=== PATIENT | female | born 2000 ===

== ENCOUNTER 2021-01-24 11:11 | Emergency (ER) | payer MEDICAID ==
[2021-01-24] MEDS ORDERED: ONDANSETRON 4 MG/2 ML INJ IV ONE (12:35)
[2021-01-24] MEDS ORDERED: SODIUM CHLORIDE 0.9% 1000 ML 1,000 ML IV ONE (12:35)
--- NOTE | 2021-01-24 12:36 | Event Note ---
ED Screening Note Date of service: 01/24/21 Time: 12:33 ED Screening Note: The patient was evaluated in the emergency department for symptoms described in the history of present illness. He/she was evaluated in the context of the global COVID-19 pandemic, which necessitated consideration that the patient might be at risk for infection with the virus that causes COVID-19. Institutional protocols and algorithms that pertain to the evaluation of patients at risk for COVID-19 are in a state of rapid change based on information released by regulatory bodies including the CDC and federal and state organizations. These policies and algorithms were followed during the patient's care in the emergency department. Please note that these policies, procedures and recommendations changed on a rapid basis. 20-year-old -[place] female presents to the emergency room for a 2-day history of feeling weak. Patient complains of epigastric pain and right upper quadrant pain that radiates to her back. She admits to nausea and vomiting. She states that she is not able to drink anything as she keeps vomiting. Patient states she had a delivery 5 months ago with no complications. Patient has had no surgeries. Her last menstrual period was sometime in the beginning of December. She denies any past medical history currently takes no meds on a daily basis and has no known drug allergies This initial assessment/diagnostic orders/clinical plan/treatment(s) is/are subject to change based on patients health status, clinical progression and re- assessment by fellow clinical providers in the ED. Further treatment and workup at subsequent clinical providers discretion. Patient/guardian urged not to elope from the ED as their condition may be serious if not clinically assessed and managed. Initial orders include: CBC CMP lipase hCG urinalysis INT, CT abdomen pelvis with contrast as patient has right upper quadrant and epigastric pain that radiates to her back and is tender to those areas. Zofran normal saline
[2021-01-24 13:29] VITALS: BP 129/63
[2021-01-24 13:49] LABS: Basophils % (Auto) 0.6 % (0.0-1.8); Eosinophils % (Auto) 0.1 % (0.0-4.3); Hematocrit 37.6 % (30.3-42.9); Lymphocytes # (Auto) 1.2 K/mm3 (1.2-5.4); Lymphocytes % (Auto) 15.8 % (13.4-35.0); Mean Corpuscular HGB Conc 35 % (30-34); Mean Corpuscular Volume 92 fl (79-97); Monocytes # (Auto) 0.3 K/mm3 (0.0-0.8); Monocytes % (Auto) 4.1 % (0.0-7.3); Platelet Count 254 K/mm3 (140-440); Red Blood Count 4.11 M/mm3 (3.65-5.03); Red Cell Distribution Width 14.1 % (13.2-15.2)
--- NOTE | 2021-01-24 14:06 | Emergency Department Report ---
ED General Adult HPI - General Chief complaint: Nausea/Vomiting/Diarrhea Stated complaint: WEAK,NAUSEOUS, STOMACH PAIN Time Seen by Provider: 01/24/21 12:22 Source: patient Mode of arrival: Ambulatory Limitations: No Limitations - History of Present Illness Initial comments: Patient presents with abdominal pain. She has been describing right upper quad rant epigastric pain. There has been nausea without vomiting. She has had no trauma. There has been no lower abdominal pain. She is no dysuria frequency. Patient states she just did not feel well and that is why she came in. Last menstrual period was in December according to her. Patient states that she is 5 months and has not had any problems with the timeframe since the delivery. There is no history of recent travel or trauma. She has had no sick contacts. There is no dysuria or frequency. She has not really noticed any aggravating or alleviating factors for the pain. Severity scale (0 -10): 0 - Related Data Allergies Allergy/AdvReac Type Severity Reaction Status Date / Time aspirin Allergy Unknown Verified 01/24/21 12:10 ED Review of Systems ROS: Stated complaint: WEAK,NAUSEOUS, STOMACH PAIN Other details as noted in HPI Comment: All other systems reviewed and negative Constitutional: denies: fever Eyes: denies: eye pain ENT: denies: throat pain Respiratory: denies: cough Cardiovascular: denies: chest pain Endocrine: denies: unexplained weight loss Gastrointestinal: denies: vomiting Genitourinary: denies: dysuria Musculoskeletal: denies: back pain Skin: denies: rash Neurological: denies: headache Hematological/Lymphatic: denies: easy bruising ED Past Medical Hx - Past Medical History Previous Medical History?: No - Surgical History Past Surgical History?: No - Family History Family history: no significant ED Physical Exam - General Limitations: No Limitations General appearance: alert, in no apparent distress - Head Head exam: Present: atraumatic, normocephalic, normal inspection - Eye Eye exam: Present: normal appearance, EOMI. Absent: scleral icterus - ENT ENT exam: Present: normal exam, normal orophraynx, mucous membranes moist - Neck Neck exam: Present: normal inspection. Absent: meningismus - Respiratory Respiratory exam: Present: normal lung sounds bilaterally. Absent: respiratory distress - Cardiovascular Cardiovascular Exam: Present: normal rhythm - GI/Abdominal GI/Abdominal exam: Present: soft. Absent: distended, tenderness - Extremities Exam Extremities exam: Present: normal capillary refill. Absent: pedal edema - Back Exam Back exam: Absent: CVA tenderness (R) - Neurological Exam Neurological exam: Present: alert, oriented X3, CN II-XII intact, normal gait, reflexes normal. Absent: motor sensory deficit - Psychiatric Psychiatric exam: Present: normal affect, normal mood - Skin Skin exam: Present: warm, dry ED Course Vital Signs 01/24/21 01/24/21 01/24/21 12:11 13:28 13:29 Temperature 98.4 F 98.4 F Pulse Rate 72 72 Respiratory 16 14 Rate Blood Pressure 135/68 129/63 [Left] O2 Sat by Pulse 98 100 100 Oximetry - Reevaluation(s) Reevaluation #1: 01/24/21 14:06 IV and labs have been ordered. Reevaluation #2: 01/24/21 14:51 Labs of been noted. test was noted. Ultrasound was ordered and CT was canceled. Reevaluation #3: 01/24/21 19:16 Ultrasound and labs noted. Patient was discharged. ED Medical Decision Making - Lab Data Result diagrams: 01/24/21 12:53 01/24/21 12:53 - Medical Decision Making Patient presents with abdominal pain. She is found to have new diagnosis of at 10 weeks. She had just delivered 5 months ago and this was somewhat surprising to her. Regardless, there is no evidence of ectopic. This is in the uterus. She clinically does not have hepatitis or pancreatitis. This is despite the fact that the pain was primarily in the upper abdomen. There is no evidence of acute cholecystitis or cholelithiasis based on her ultrasound. She was treated symptomatically and referred back to her transmission tester for recheck. She is not hypoxic. Critical Care Time: No Critical care attestation.: If time is entered above; I have spent that time in minutes in the direct care of this critically ill patient, excluding procedure time. ED Disposition Clinical Impression: Upper abdominal pain Qualifiers: Weeks of gestation: 10 weeks Qualified Code(s): Z3A.10 - 10 weeks gestation of Disposition: 01 HOME / SELF CARE / HOMELESS Is pt being admited?: No Does the pt Need Aspirin: No Condition: Stable Instructions: Before Baby Comes Home, Care Additional Instructions: Have a bland diet. Drink plenty water. Return for problems. Take Tylenol only for pain. Continue vitamins. See your transmission tester for recheck.
[2021-01-24 14:08] LABS: Alanine Aminotransferase 7 units/L (7-56); Albumin 4.6 g/dL (3.9-5); Blood Urea Nitrogen 5 mg/dL (7-17); Calcium 10.3 mg/dL (8.4-10.2); Hemolysis Index 0
[2021-01-24 14:10] LABS: BUN/Creatinine Ratio 13
--- NOTE | 2021-01-24 15:59 | Ultrasound Report ---
LIMITED RUQ ABDOMINAL ULTRASOUND Limited OB ultrasound INDICATION: ruq pain. COMPARISON: No relevant prior imaging study available. FINDINGS: Pancreas: Visualized portions show no significant abnormality. Abdominal Aorta: Normal size. IVC: No significant abnormality. Liver: The liver measures 15.9 cm in length. No significant abnormality. Normal hepatopedal blood fl ow in the main portal vein. Gallbladder: No significant abnormality. Bile ducts: No significant abnormality. Common bile duct measures 2 mm. Right kidney: No significant abnormality visualized.. Free fluid: None. Additional Findings: None. On limited OB ultrasound, the uterus measures 9.3 x 8.8 x 8.5 cm with an intrauterine gestation with crown-rump length measuring 3.1 cm. This corresponds with an EGA of 10 weeks and 0 days with estimate d delivery date of 08/22/2021. A crescentic hypoechoic structure measuring 2.9 cm in maximal dimension is seen adjacent to the gestation, likely an implantation bleed. The ovaries are both normal as well . No pelvic free fluid. IMPRESSION: 1. No acute abnormality in the abdomen. 2. Small probable implantation bleed in the uterus adjacent to the fetus. Otherwise nothing acute. Signer Name: Morris Barksdale MD Signed: 01/24/2021 3:55 PM Workstation Name: [id number]
[2021-01-24] MEDS ORDERED: METOCLOPRAMIDE 10 MG/2 ML INJ IV ONE (17:10)
[2021-01-24] MEDS ORDERED: MORPHINE 4 MG/1 ML INJ IV ONE (17:10)
== END 2021-01-24 13:28 | disposition home or self-care (01) ==
LOC: ED 11:11
DX: O26.891 Other specified pregnancy related conditions, first trimester (principal); R10.10 Upper abdominal pain, unspecified; Z3A.10 10 weeks gestation of pregnancy; Z88.8 Allergy status to other drugs, medicaments and biological substances
CPT/HCPCS: 36415; 76705; 76801; 80053; 83690; 84702; 85025; 96361; 96374; 99284; J2270; J2405; J2765; J7030